=== PATIENT | male | born 1985 | race Two or more races ===

== ENCOUNTER 2021-09-26 17:59 | Emergency (ER) | payer OTHER ==
[~2021-09-26] VITALS: Ht 160 cm; Wt 72.6 kg
== END 2021-09-26 21:29 | disposition home or self-care (01) ==
LOC: ER 17:59
DX: J06.9 Acute upper respiratory infection, unspecified (principal); R50.9 Fever, unspecified; Z20.822 Contact with and (suspected) exposure to COVID-19

== ENCOUNTER 2021-09-29 22:40 | Emergency (ER) | payer OTHER ==
[~2021-09-29] VITALS: Ht 170.2 cm; Wt 79.4 kg
== END 2021-09-30 03:02 ==
LOC: ER 22:40
DX: R53.83 Other fatigue (principal)

== ENCOUNTER 2021-10-02 11:20 | Emergency (ER) | payer OTHER ==
[~2021-10-02] VITALS: Ht 170.2 cm; Wt 78.0 kg
== END 2021-10-02 12:36 | disposition home or self-care (01) ==
LOC: ER 11:20
DX: U07.1 COVID-19 (principal)

== ENCOUNTER 2021-10-02 14:14 | Outpatient (CLI) | payer OTHER | END 2021-10-02 15:00 | disposition home or self-care (01) | LOC: ASH CLINIC 14:14 | PROVIDERS: ATTEND General Practice | DX: U07.1 COVID-19 (principal) ==

== ENCOUNTER 2024-05-15 07:12 | Day surgery (SDC) | payer OTHER ==
[2024-05-14 10:48] LABS: URINE APPEARANCE Clear; URINE BILIRRUBIN Negative (NEGATIVE); URINE BLOOD Negative; URINE COLOR Yellow; URINE GLUCOSE Negative (NEGATIVE); URINE KETONE Negative (NEGATIVE); URINE LEUKOCYTE Negative; URINE NITRATE Negative; URINE PROTEIN Negative (NEGATIVE); URINE UROBILINOGEN 0.2 E.U./dl
[2024-05-14 10:52] LABS: URINE RBC 4.8 uL (0.0-20.8)
[2024-05-14 10:55] LABS: HEMOGLOBIN 13.6 g/dL (13-16.00); MEAN CELL VOLUME 86.6 fL (80.0-100.00); MEAN CORPUSCULAR HEMOGLOBIN 28.7 pg (27.00-32.0); MEAN CORPUSCULAR HGB CONC 33.2 g/dl (32.0-36.0); PLATELET COUNT 260 K/uL (150-450); RED BLOOD COUNT 4.74 M/uL (4.00-6.00); RED CELL DISTRIBUTION WIDTH 13.5 % (11.5-14.5)
[2024-05-14 10:56] LABS: URINE BACTERIA 0 uL (0.0-1933); URINE EPITHELIAL CELLS 0.6 uL (0.0-38.8); URINE WBC 1.7 uL (0.0-23.2)
[2024-05-14 11:18] LABS: INR 1.02; PARTIAL THROMBOPLASTIN TIME 28.5 SECONDS (22.0-34.0); PROTHROMBIN TIME 11.1 SECONDS (9.0-11.5)
[2024-05-14 11:53] LABS: ALBUMIN 3.7 gm/dL (3.4-5.0); BILIRUBIN TOTAL 0.45 mg/dL (0.3-1.2); CALCIUM 9.2 mg/dL (8.5-10.1); CREATININE SERUM 0.76 mg/dL (0.70-1.30); GFR 114.18; GLOBULINA 4.3 G/DL (2.4-3.5); POTASSIUM 4.48 mEq/L (3.5-5.1)
[2024-05-15] MEDS ORDERED: CEFAZOLIN SODIUM 1,000 MG VIAL ONE (14:02)
[2024-05-15] MEDS ORDERED: MORPHINE SULFATE 4 MG/ML VIAL IV ONE ×2 (16:05→16:35)
== END 2024-05-15 18:00 | disposition home or self-care (01) ==
LOC: CIR.AMB 07:12
PROVIDERS: ATTEND Orthopaedic Surgery Hand Surgery
DX: S62.211A Bennett's fracture, right hand, initial encounter for closed fracture (principal); J45.909 Unspecified asthma, uncomplicated